=== PATIENT | male | born 1995 | race Caucasian/White ===

== ENCOUNTER 2023-03-05 09:45 | Outpatient (CLI) | payer BC, SELFPAY ==
[2023-03-05 10:37] LABS: Kit Draw Collected
== END 2023-03-05 09:46 | disposition home or self-care (01) ==
LOC: ANHGOSHLAB 09:47
PROVIDERS: PCP Family Medicine; Visit Provider Family Medicine
DX: R53.83 Other fatigue (principal); R41.840 Attention and concentration deficit
CPT/HCPCS: 36415